=== PATIENT | male | born 1940 | race Two or more races ===

== ENCOUNTER 2018-10-02 12:00 | Inpatient (IN) | payer OTHER ==
[~2018-10-02] VITALS: Ht 172.7 cm; Wt 74.4 kg
[2018-10-09] MEDS ORDERED: CARVEDILOL25 MG PO (10:13)
[2018-10-09] MEDS ORDERED: CLOPIDOGREL BIS75 MG PO (10:13)
[2018-10-09] MEDS ORDERED: ALDACTAZIDE 251 EACH PO (10:14)
[2018-10-09] MEDS ORDERED: DIGOX125 MCG PO (10:14)
[2018-10-09] MEDS ORDERED: COZAAR100 MG PO (10:14)
[2018-10-09] MEDS ORDERED: LASIX40 MG PO (10:15)
[2018-10-09] MEDS ORDERED: LIPITOR20 MG PO (10:15)
[2018-10-09] MEDS ORDERED: FENOFIBRATE160 MG PO (10:16)
[2018-10-09] MEDS ORDERED: UROXATRAL10 MG PO (10:16)
[2018-10-09] MEDS ORDERED: HORIZANT300 MG PO (10:16)
[2018-10-15] MEDS ORDERED: OXYC1TAB9 PO (10:23)
[2018-10-15] MEDS ORDERED: HYOSCYAMINE0.125 M1 SL (10:30)
== END 2018-10-15 12:34 | disposition home or self-care (01) | DRG 331 ==
LOC: SURH 10-09 07:45 → O/R 10-12 07:41 → SURH 10-12 07:45
PROVIDERS: ADMIT Surgery
PROC: 0DJD8ZZ Inspection of Lower Intestinal Tract, Via Natural or Artificial Opening Endoscopic (ICD-10-PCS; 2018-10-12)
PROC: 0DTN4ZZ Resection of Sigmoid Colon, Percutaneous Endoscopic Approach (ICD-10-PCS; principal; 2018-10-12 10:45)
PROC: 3E0F7GC Introduction of Other Therapeutic Substance into Respiratory Tract, Via Natural or Artificial Opening (ICD-10-PCS; 2018-10-13)
DX: C18.7 Malignant neoplasm of sigmoid colon (principal); J44.9 Chronic obstructive pulmonary disease, unspecified; N40.0 Benign prostatic hyperplasia without lower urinary tract symptoms

== ENCOUNTER 2019-05-28 07:55 | Outpatient (CLI) | payer OTHER ==
[~2019-05-28 07:55] MED LIST: ALDACTAZIDE 251 EACH PO; CARVEDILOL25 MG PO; CLOPIDOGREL BIS75 MG PO; COZAAR100 MG PO; DIGOX125 MCG PO; FENOFIBRATE160 MG PO; HORIZANT300 MG PO; HYOSCYAMINE0.125 M1 SL; LASIX40 MG PO; LIPITOR20 MG PO; OXYC1TAB9 PO; UROXATRAL10 MG PO
== END 2019-05-28 08:04 | disposition home or self-care (01) ==
LOC: NUCLEAR 07:55
DX: C34.11 Malignant neoplasm of upper lobe, right bronchus or lung (principal)
CPT/HCPCS: 78815; A9552